=== PATIENT | male | born 1995 | race Caucasian/White ===

== ENCOUNTER 2016-08-28 17:45 | Emergency (ER) | payer OTHER ==
[~2016-08-28] VITALS: Ht 185.4 cm; Wt 92.8 kg
[2016-08-28] MEDS ORDERED: PERCOCET 5/31 TABLET PO (20:43)
[2016-08-28 21:19] VITALS: BP 160/82
== END 2016-08-28 21:20 | disposition home or self-care (01) ==
LOC: EME 17:45
DX: S83.91XA Sprain of unspecified site of right knee, initial encounter (principal); X50.9XXA Other and unspecified overexertion or strenuous movements or postures, initial encounter; Y93.64 Activity, baseball
CPT/HCPCS: 73564; 99281; 99284